=== PATIENT | female | born 2000 | race Caucasian/White ===

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

== ENCOUNTER 2022-07-17 13:41 | Outpatient (CLI) | payer OTHER ==
--- NOTE | 2022-07-17 17:00 | MRI Report ---
PROCEDURE: BRAIN WO INDICATIONS: HEADACHE TECHNIQUE: Noncontrast axial T1 spin echo, axial T2 fast spin echo, sagittal and axial FLAIR, coronal T2 fast sp in echo, axial gradient echo, axial diffusion and ADC through the brain. COMPARISON: None. FINDINGS: Image quality: Excellent. CSF Spaces: Basal cisterns are patent. No extra-axial fluid collections. Ventricles are normal in size and shape. Brain: No intracranial masses or hemorrhage. Otto/white matter interface is normal. Brainstem appe ars normal. Diffusion-weighted images demonstrate no acute ischemic insult. No chronic ischemic ins ults. Normal intravascular flow voids are present. Skull and face: Calvarium has normal marrow signal. Orbits appear normal. Sinuses: Sinuses and mastoids are clear. IMPRESSION: A cause of headache cannot be seen on these images. Reviewed by: Macario Qiu MD on 07/17/2022 3:58 PM [facility] Approved by: Macario Qiu MD on 07/17/2022 3:58 PM [facility] Station ID: [id number]
== END 2022-07-17 13:42 | disposition home or self-care (01) ==
LOC: DI 13:41
PROVIDERS: ATTEND Physician Assistant
DX: G43.109 Migraine with aura, not intractable, without status migrainosus (principal)

== ENCOUNTER 2023-03-02 17:30 | Emergency (ER) | payer OTHER ==
--- NOTE | 2023-03-02 18:27 | ED Physician Documentation ---
History of Present Illness - Stated complaint Stated Complaint: ABD PX - Chief complaint Chief Complaint: Abd Pain - History obtained from History obtained from: Patient, Family - History of Present Illness Timing: Today Pain level max: 5 Pain level now: 2 - Additonal information Additional information: Patient is a 22-year-old female who presents to the emergency department with right-sided pelvic pain. She states that this started earlier today at work about 4 hours ago. States the pain is improved now. Is described as sharp. She is currently on her menses. Normally is every 28 days. Not on control. No vaginal discharge. No nausea or vomiting. No fevers. There is a family history of ovarian cyst. 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 : None HEENT: None Psych: None Musculoskeletal: None Derm: None - Past Surgical History Past Surgical History: No - Present Medications Home Medications: Ambulatory Orders Medication Instructions Recorded Confirmed No Known Home Medications 03/02/23 03/02/23 - Allergies Allergies/Adverse Reactions: Allergies Allergy/AdvReac Type Severity Reaction Status Date / Time No Known Drug Allergies Allergy Verified 03/02/23 17:42 - Social History Does the pt smoke?: No Smoking Status: Never smoker Does the pt drink ETOH?: No Does the pt have substance abuse?: No - Immunizations Immunizations are current?: Yes - POLST Patient has POLST: No PD ED PE NORMAL - Vitals Vital signs reviewed: Yes - General General: Alert and oriented X 3, No acute distress - HEENT HEENT: Moist mucous membranes - Neck Neck: Supple, no meningeal sign - Cardiac Cardiac: RRR, Strong equal pulses - Respiratory Respiratory: No respiratory distress, Clear bilaterally - Abdomen Abdomen: Soft, Non distended, Other (Mild tenderness to palpation right low pelvic. No tenderness at McBurney's point. No peritoneal signs. Otherwise benign abdominal exam) - Back Back: No CVA TTP, No spinal TTP - Derm Derm: Warm and dry - Extremities Extremities: No edema - Neuro Neuro: Alert and oriented X 3 - Psych Psych: Normal mood, Normal affect Results - Vitals Vitals: Vital Signs - 24 hr 03/02/23 03/02/23 03/02/23 17:43 17:45 20:41 Temperature 37 C 37.0 C Heart Rate 90 90 73 Respiratory 16 16 16 Rate Blood Pressure 123/72 123/72 105/65 O2 Saturation 99 99 100 Oxygen O2 Source Room air - Labs Labs: Laboratory Tests 03/02/23 17:50 Urine Color YELLOW Urine Clarity CLEAR Urine pH 7.0 Ur Specific [place] 1.010 Urine Protein NEGATIVE Urine Glucose (UA) NEGATIVE Urine Ketones NEGATIVE Urine Occult Blood LARGE H Urine Nitrite NEGATIVE Urine Bilirubin NEGATIVE Urine Urobilinogen 0.2 (NORMAL) Ur Leukocyte Esterase NEGATIVE Urine RBC 6-10 H Urine WBC 0-3 Ur Squamous Epith Cells MOD Squamous H Urine Bacteria Few Ur Microscopic Review INDICATED Urine Culture Comments NOT INDICATED Urine HCG, Qual NEGATIVE - Rads (name of study) pelvic US Relevant Findings:: Final report received, See rad report PD Medical Decision Making - ED course Complexity details: reviewed results, re-evaluated patient, considered differential, d/w patient ED course: No acute findings on pelvic ultrasound. Abdomen is soft, nontender nondistended on serial exam. No acute findings on urinalysis. hCG is negative. Unclear etiology of her earlier pain. She is asymptomatic currently. We will have her follow-up with her doctor for further care. No evidence of appendicitis. No peritonitis. Patient counseled regarding signs and symptoms for which I believe and urgent re-evaluation would be necessary. Patient with good understanding of and agreement to plan and is comfortable going home at this time This document was made in part using voice recognition software. While efforts are made to proofread this document, sound alike and grammatical errors may occur. Departure - Departure Disposition: 01 Home, Self Care Clinical Impression: Pelvic pain in female Condition: Good Instructions: ED Pelvic Pain [facility] Follow-Up: Your,doctor As needed [Other] Comments: Your ultrasound does not show any acute abnormalities today. Please follow-up with your doctor as needed for further care. Please return if you worsen including worsening pain, fevers, vomiting or other new or worrisome symptoms. PROCEDURE: Pelvic w/Transvag+Doppler Comp INDICATIONS: R pelvic pain TECHNIQUE: Real-time scanning was performed of the pelvic organs, with image documentation. Additional endovaginal scanning was necessary due to incomplete visualization of the adnexal and endometrial structures by transabdominal scanning. Doppler interrogation was performed of the ovaries bilaterally. COMPARISON: None. FINDINGS: Uterus: Uterus is anteverted and measures 8.3 x 3.2 x 4.6 cm. The endometrium measures up to 0.9 cm. Ovaries: The right ovary measures 3.3 x 2.5 x 2.6 cm, with a calculated ovarian volume of 15.5 cc. The left ovary measures 4.1 x 1.9 x 3.2 cm, with a calculated ovarian volume of 15.1 cc. There is patent arterial and venous flow demonstrated in the ovaries on Doppler interrogation. Less than 12 follicles can be seen in each ovary. No adnexal masses are seen. No cystic lesions measuring greater than 3 cm. Other: No pathologic free abdominal or pelvic fluid. IMPRESSION: 1. No acute sonographic abnormality in the pelvis. Specifically, no evidence of ovarian torsion. Discharge Date/Time: 03/02/23 20:41
[2023-03-02 18:43] LABS: BILIRUBIN,URINE NEGATIVE (NEGATIVE); GLUCOSE, URINE (UA) NEGATIVE (NEGATIVE); KETONES,URINE (UA) NEGATIVE (NEGATIVE); LEUKOCYTE ESTERASE, URINE NEGATIVE (NEGATIVE); NITRITE,URINE NEGATIVE (NEGATIVE); OCCULT BLOOD,URINE LARGE (NEGATIVE); PROTEIN,URINE NEGATIVE (NEGATIVE); UROBILINOGEN,URINE 0.2 (NORMAL) E.U./dL (NORMAL)
[2023-03-02 18:45] LABS: CLARITY,URINE CLEAR (CLEAR); HCG UR QUAL NEGATIVE
[2023-03-02 18:52] LABS: BACTERIA,URINE Few /HPF (None Seen); SQUAMOUS EPITHELIAL CELL,UR MOD Squamous (<= Few); WBC,URINE 0-3 /HPF (0-5)
--- NOTE | 2023-03-02 20:11 | Ultrasound Report ---
PROCEDURE: Pelvic w/Transvag+Doppler Comp INDICATIONS: R pelvic pain TECHNIQUE: Real-time scanning was performed of the pelvic organs, with image documentation. Additional endovagi nal scanning was necessary due to incomplete visualization of the adnexal and endometrial structures by transabdominal scanning. Doppler interrogation was performed of the ovaries bilaterally. COMPARISON: None. FINDINGS: Uterus: Uterus is anteverted and measures 8.3 x 3.2 x 4.6 cm. The endometrium measures up to 0.9 cm. Ovaries: The right ovary measures 3.3 x 2.5 x 2.6 cm, with a calculated ovarian volume of 15.5 cc. The left ovary measures 4.1 x 1.9 x 3.2 cm, with a calculated ovarian volume of 15.1 cc. There is pat ent arterial and venous flow demonstrated in the ovaries on Doppler interrogation. Less than 12 folli cles can be seen in each ovary. No adnexal masses are seen. No cystic lesions measuring greater than 3 cm. Other: No pathologic free abdominal or pelvic fluid. IMPRESSION: 1. No acute sonographic abnormality in the pelvis. Specifically, no evidence of ovarian torsion. Reviewed by: Jenaro Fuentes MD on 03/02/2023 8:10 PM PDT Approved by: Jenaro Fuentes MD on 03/02/2023 8:10 PM PDT Station ID: [id number]
[2023-03-02 20:45] VITALS: BP 105/65
== END 2023-03-02 20:41 | disposition home or self-care (01) ==
LOC: ED 17:30
DX: R10.2 Pelvic and perineal pain (principal)
CPT/HCPCS: 81001; 81003; 81025; 87086; 93975; 99283; 99284